=== PATIENT | male | born 1945 | race Caucasian/White ===

== ENCOUNTER → 2021-02-23 10:51 | Outpatient (CLI) | payer MEDICARE, SELFPAY ==
--- NOTE | 2021-02-23 | DI.MRI.S_ITS ---
PROCEDURE: MR HEAD/BRAIN WO/W CON INDICATIONS: Diplopia TECHNIQUE: Noncontrast axial T1 spin echo, axial T2 fast spin echo, sagittal and axial FLAIR, coronal T2 fast spin echo, axial gradient echo, axial diffusion and ADC through the brain. After the administration of contrast, axial and coronal T1 spin echo with fat saturation through the brain. In this patient, additional specialized images were obtained of the orbits, including thin-section coronal STIR images, thin section axial T1 weighted fat saturated images, with postcontrast thin-section axial and coronal T1 weighted fat saturated images. COMPARISON: None. FINDINGS: Image quality: Excellent. CSF spaces: Basal cisterns are patent. No extra-axial fluid collections. Ventricles are normal in size and shape. Brain: In this patient with this given history, scrutiny is given to the orbits. The orbits are unremarkable, without masses or abnormal enhancement. The globes are within normal limits. The optic nerves demonstrate no significant abnormality. The extraocular muscles are within normal limits. The optic chiasm and optic tracts are within normal limits. No significant abnormality can be seen of the cranial nerves or within the skull base. Makeda No midline shift. No intracranial bleeds or masses. No abnormal intracranial enhancement. There is cerebral volume loss for age. There is periventricular white matter chronic small vessel ischemic change. The brainstem appears normal. Diffusion-weighted images demonstrate no acute ischemic insults. No chronic ischemic insults. Normal intravascular flow voids are present. Skull and face: Calvarial marrow is normal in signal. Orbits appear normal. Sinuses: Sinuses and mastoids appear clear. IMPRESSION: Unremarkable intracranial study for age, without an imaging explanation found for the patient's presenting history diplopia. Dictated by: Kevin Castelan M.D. on 02/23/2021 at 10:41 Approved by: Kevin Castelan M.D. on 02/23/2021 at 10:44
== END ==
PROVIDERS: PCP Family Medicine; Referring Provider Ophthalmology; Visit Provider Ophthalmology
DX: H53.2 Diplopia (principal)
CPT/HCPCS: 70553; A9579